=== PATIENT | female | born 1970 | race Caucasian/White ===

== ENCOUNTER 2016-10-10 11:14 | Inpatient (IN) | payer BC ==
[~2016-10-10] VITALS: Ht 154.9 cm; Wt 50.3 kg
[2016-10-10] MEDS ORDERED: LEVO-T50 MCG PO (12:00)
[2016-10-10 12:22] LABS: HEMATOCRIT 39.5 % (36.0-46.0); MCH 28.1 PG (29.0-34.0); MCHC 32.4 G/DL (30.0-36.0); MCV 86.8 FL (83-99); MEAN PLAT.VOLUME 9.3 uM^3 (9.5-12.4); PLATELET COUNT 270 K/uL (156-360); RBC DIS.WIDTH-CV 12.5 % (11.8-14.6); RBC DIS.WIDTH-SD 39.3 % (39-53); RED BLOOD COUNT 4.55 M/uL (3.80-5.20)
[2016-10-10 12:24] LABS: WHITE BLOOD COUNT 11.9 K/uL (4.1-10.2)
[2016-10-10 12:34] LABS: CHLORIDE 102 mEq/L (99-109); POTASSIUM 3.7 mEq/L (3.7-5.4); SODIUM 140 mEq/L (136-147)
[2016-10-10 12:36] LABS: GLUCOSE 79 mg/dL (70-99)
[2016-10-10 12:37] LABS: ANION GAP 13 MEQ/L (2-14)
[2016-10-10 12:38] LABS: TOTAL BILIRUBIN 0.6 mg/dL (0.0-1.0)
[2016-10-10 12:40] LABS: ALKALINE PHOSPHATASE 57 IU/L (3-129); GFR ESTIMATE (CALCULATED) > 59 mL/min/
[2016-10-10 12:41] LABS: UREA NITROGEN (BUN) 5 mg/dL (9-23)
[2016-10-10 12:49] LABS: QUANTITATIVE HCG < 4.0 MIU/ML
[2016-10-10 19:20] VITALS: BP 91/52
[2016-10-10 23:33] VITALS: BP 98/58
[2016-10-11 07:09] LABS: EOSINOPHIL (%) 0.1 % (0-5); HEMATOCRIT 35.4 % (36.0-46.0); IMMATURE GRANULOCYTE (%) 0.3 % (0.0-0.7); LYMPHOCYTE COUNT 1.1 K/uL (1.0-2.8); MCH 27.7 PG (29.0-34.0); MCHC 31.6 G/DL (30.0-36.0); MCV 87.6 FL (83-99); MEAN PLAT.VOLUME 9.9 uM^3 (9.5-12.4); MONOCYTE (%) 6.2 % (3-12); MONOCYTE COUNT 0.7 K/uL (0-0.8); NEUTROPHIL (%) 83.5 % (45-76); NEUTROPHIL COUNT 9.7 K/uL (1.8-6.4); PLATELET COUNT 265 K/uL (156-360); RBC DIS.WIDTH-CV 12.9 % (11.8-14.6); RBC DIS.WIDTH-SD 41.7 % (39-53); RED BLOOD COUNT 4.04 M/uL (3.80-5.20); WHITE BLOOD COUNT 11.6 K/uL (4.1-10.2)
[2016-10-11 07:12] VITALS: BP 98/54
[2016-10-11 07:39] LABS: ALKALINE PHOSPHATASE 50 IU/L (3-129); ANION GAP 11 MEQ/L (2-14); CHLORIDE 101 MEQ/L (99-109); GFR ESTIMATE (CALCULATED) > 59 mL/min/; GLUCOSE 97 mg/dL (70-99); MAGNESIUM 2.2 mg/dl (1.3-2.7); POTASSIUM 3.9 MEQ/L (3.7-5.4); SAMPLE HEMOLYSIS CHECK 0; SAMPLE ICTERIC CHECK 0; SAMPLE LIPEMIA CHECK 0; SODIUM 138 MEQ/L (136-147); TOTAL BILIRUBIN 0.6 MG/DL (0.0-1.0); UREA NITROGEN (BUN) 6 mg/dL (9-23)
[2016-10-11 10:56] VITALS: BP 96/54
[2016-10-11 15:39] VITALS: BP 101/56
[2016-10-11 19:10] VITALS: BP 106/71
[2016-10-12 00:19] VITALS: BP 97/56
[2016-10-12 03:12] VITALS: BP 95/56
[2016-10-12 07:06] LABS: BASOPHIL COUNT 0.1 K/uL (0-0.1); EOSINOPHIL COUNT 0.1 K/uL (0-0.3); HEMATOCRIT 35.9 % (36.0-46.0); IMMATURE GRANULOCYTE (%) 0.4 % (0.0-0.7); INSTRUMENT ABS NEUTROPHIL CT 2.9 K/uL; MCH 28.2 PG (29.0-34.0); MCHC 31.8 G/DL (30.0-36.0); MCV 88.9 FL (83-99); MEAN PLAT.VOLUME 9.3 uM^3 (9.5-12.4); MONOCYTE (%) 11.4 % (3-12); MONOCYTE COUNT 0.5 K/uL (0-0.8); NEUTROPHIL (%) 64.2 % (45-76); NEUTROPHIL COUNT 2.9 K/uL (1.8-6.4); PLATELET COUNT 272 K/uL (156-360); RBC DIS.WIDTH-CV 12.5 % (11.8-14.6); RED BLOOD COUNT 4.04 M/uL (3.80-5.20)
[2016-10-12 07:12] LABS: WHITE BLOOD COUNT 4.6 K/uL (4.1-10.2)
[2016-10-12 07:24] VITALS: BP 130/63
[2016-10-12 15:45] VITALS: BP 99/79
[2016-10-12 19:30] VITALS: BP 106/54
[2016-10-13] VITALS: BP 100/58
[2016-10-13 06:32] LABS: HEMATOCRIT 36.1 % (36.0-46.0); MCH 28.5 PG (29.0-34.0); MCHC 32.1 G/DL (30.0-36.0); MCV 88.7 FL (83-99); MEAN PLAT.VOLUME 9.5 uM^3 (9.5-12.4); PLATELET COUNT 283 K/uL (156-360); RBC DIS.WIDTH-CV 12.5 % (11.8-14.6); RBC DIS.WIDTH-SD 40.7 % (39-53); RED BLOOD COUNT 4.07 M/uL (3.80-5.20); WHITE BLOOD COUNT 4.1 K/uL (4.1-10.2)
[2016-10-13 06:55] LABS: ANION GAP 8 MEQ/L (2-14); CHLORIDE 103 MEQ/L (99-109); GFR ESTIMATE (CALCULATED) > 59 mL/min/; GLUCOSE 81 mg/dL (70-99); POTASSIUM 3.5 MEQ/L (3.7-5.4); SAMPLE HEMOLYSIS CHECK 0; SAMPLE ICTERIC CHECK 0; SAMPLE LIPEMIA CHECK 0; SODIUM 140 MEQ/L (136-147); UREA NITROGEN (BUN) 4 mg/dL (9-23)
[2016-10-13 08:02] VITALS: BP 99/70
[2016-10-13 08:09] LABS: EOSINOPHIL (%) 2.5 % (0-5); EOSINOPHIL COUNT 0.1 K/uL (0-0.3); IMMATURE GRANULOCYTE (%) 0.5 % (0.0-0.7); LYMPHOCYTE COUNT 1.3 K/uL (1.0-2.8); MONOCYTE (%) 14.6 % (3-12); MONOCYTE COUNT 0.6 K/uL (0-0.8)
[2016-10-13] MEDS ORDERED: COLACE100 MG PO (10:53)
[2016-10-13] MEDS ORDERED: PERCOCET 5/31 TABLET PO (10:53)
[2016-10-13] MEDS ORDERED: METRONIDAZOLE500 MG PO (10:53)
[2016-10-13] MEDS ORDERED: CIPRO500 MG PO (10:53)
== END 2016-10-13 14:18 | disposition home or self-care (01) | DRG 373 ==
LOC: EME 11:14 → EDOF 13:55 → 5EAST 13:55 → EDOF 13:56 → 5EAST 18:06
PROVIDERS: Surgery
PROC: 0W9G30Z Drainage of Peritoneal Cavity with Drainage Device, Percutaneous Approach (ICD-10-PCS; principal; 2016-10-10)
DX: K35.3 Acute appendicitis with localized peritonitis (principal); E03.9 Hypothyroidism, unspecified
CPT/HCPCS: 49405; 80048; 80053; 81003; 83735; 84100; 84702; 85025; 85027; 87070; 87075; 87076; 87185; 87205; 99281; 99285; C1769; J1335; J2405; J2543; J3010; J7030; J7050

== ENCOUNTER → 2016-10-15 | Outpatient (CLI) | payer BC ==
[~2016-10-15] MED LIST: CIPRO500 MG PO; COLACE100 MG PO; LEVO-T50 MCG PO; METRONIDAZOLE500 MG PO; PERCOCET 5/31 TABLET PO
== END | disposition home or self-care (01) ==
LOC: RAD 09:40
DX: K38.8 Other specified diseases of appendix (principal)
CPT/HCPCS: 72192

== ENCOUNTER → 2016-11-19 | Outpatient (CLI) | payer BC | END | disposition home or self-care (01) | LOC: NUC 07:53 | DX: R94.6 Abnormal results of thyroid function studies (principal) | CPT/HCPCS: 78072; A9500 ==